=== PATIENT | female | born 1980 | race Caucasian/White ===

== ENCOUNTER 2022-08-07 10:41 | Emergency (ER) | payer MEDICAID ==
[~2022-08-07] VITALS: Ht 175.3 cm; Wt 84.0 kg
[2022-08-07 11:57] VITALS: BP 107/63
[2022-08-07] MEDS ORDERED: ketorolac trometh. 30mg/ml inj. IM ONE (12:50)
[2022-08-07] MEDS ORDERED: IBUP-1984 PO (13:53)
[2022-08-07] MEDS ORDERED: CYCL-1 PO (13:53)
== END 2022-08-07 14:12 | disposition home or self-care (01) ==
LOC: ER 10:42
DX: M54.50 Low back pain, unspecified (principal); Z88.5 Allergy status to narcotic agent; Z88.6 Allergy status to analgesic agent; V89.2XXA Person injured in unspecified motor-vehicle accident, traffic, initial encounter; Y93.89 Activity, other specified; Y92.89 Other specified places as the place of occurrence of the external cause; Y99.8 Other external cause status
CPT/HCPCS: 72131; 96372; 99284; J1885